=== PATIENT | female | born 1945 | race Caucasian/White ===

== ENCOUNTER → 2017-11-14 | Day surgery (SDC) | payer MEDICARE ==
[~2017-11-14] MED LIST: AMOXICILLIN875 MG PO; ARMOUR THYRO90 MG PO; CO Q 1010 MG PO; CODEINE/GUAIFEN1 SOL PO; LEVAQUIN750 M1 PO; OCEANIC SELENI50 MCG PO; PROBIOTI2 PO; VITAMI16 PO; VITAMIN B-1100 M1 PO
[2017-11-14 08:52] VITALS: BP 129/60
== END | disposition home or self-care (01) ==
LOC: ENDO 06:27
PROVIDERS: ATTEND Surgery
PROC: 0DJD8ZZ Inspection of Lower Intestinal Tract, Via Natural or Artificial Opening Endoscopic (ICD-10-PCS; principal; 2017-11-14)
DX: R10.32 Left lower quadrant pain (principal); Q43.8 Other specified congenital malformations of intestine; K57.30 Diverticulosis of large intestine without perforation or abscess without bleeding

== ENCOUNTER 2024-03-26 16:57 | Emergency (ER) | payer MEDICARE ==
[2024-03-26] VITALS (7 sets, daily range): BP systolic 123–138; BP diastolic 66–80
[~2024-03-26] VITALS: Ht 157.5 cm; Wt 77.1 kg
[~2024-03-26 16:57] MED LIST changes: +MAGNESIUM250 M1 PO; +VITAMIN A PO; +VITAMIN D2 PO; +ZINC50 M1 PO
[2024-03-26] MEDS ORDERED: ONDANSETRON HCl 4 MG/2 ML SDV IV ONE (17:10)
[2024-03-26 17:29] LABS: BASO% 0.9 % (0-3); EOS% 1.2 % (0-8); HEMOGLOBIN 11.2 g/dl (12.0-16.0); IMMATURE GRANULOCYTES 0.2 % (0.0-5.0); LYMPH% 26.9 % (15-41); MEAN CELL VOLUME 98.3 fL CALC (80.0-100.0); MEAN CORPUSCULAR HGB 31.5 pG CALC (26.0-32.0); MONO% 10.7 % (2-13); NEUT# 3.38 thou/uL (2.00-7.15); NEUT% 60.1 % (42-76); RED BLOOD COUNT 3.56 mill/uL (4.20-5.60)
[2024-03-26 17:45] LABS: ALBUMIN 3.6 g/dL (3.2-5.0); ALKALINE PHOSPHATASE 47 u/l (38-126); ANION GAP 5 (6-22 (CALC)); BILIRUBIN, TOTAL 0.6 mg/dL (0.02-1.3); BUN 23 mg/dL (8-23); BUN/CREATININE RATIO 32 (12-20 (CALC)); CARBON DIOXIDE 28 mmol/l (22-30); CHLORIDE 112 mmol/l (95-108); CPK 145 u/l (30-135); CREATININE 0.7 mg/dL (0.5-1.0); ESTIMATED GFR 88 ML/MIN (>=90 (CALC)); POTASSIUM 4.3 mmol/l (3.5-5.1); SGOT/AST 28 u/l (9-36); SODIUM 141 mmol/l (137-146); TOTAL PROTEIN 6.1 g/dL (6.3-8.2)
[2024-03-26] MEDS ORDERED: ZOFRAN4 MG/TAB PO (18:34)
== END 2024-03-26 19:48 | disposition home or self-care (01) ==
LOC: ED 16:57
PROVIDERS: Nurse Practitioner
DX: E86.0 Dehydration (principal); R53.1 Weakness; R42 Dizziness and giddiness; R11.0 Nausea